=== PATIENT | female | born 1960 | race Caucasian/White ===

== ENCOUNTER 2019-07-03 14:47 | Outpatient (CLI) | payer OTHER ==
--- NOTE | 2019-07-03 15:55 | BD ---
BONE DENSITOMETRY USING DEXA: HISTORY: Postmenopausal screening for osteoporosis. Asymptomatic menopausal state. FINDINGS: Lumbar Spine: BMD (g/cm2) L1 0.887 T-Score: -0.9 Z-Score: 0.3 L2 0.939 T-Score: -0.8 Z-Score: 0.6 L3 1.032 T-Score: -0.5 Z-Score: 1.0 L4 1.031 T-Score: -0.3 Z-Score: 1.2 L1-L4 0.980 T-Score: -0.6 Z-Score: 0.8 Femoral Neck: 0.612 T-Score: -2.1 Z-Score: -0.9 Total Femur: 0.936 T-Score: -0.6 Z-Score: 0.9 The 10-year fracture risk for a major osteoporotic fracture is 10% and for a hip fracture is 1.4%. Impression: Osteopenia. POS: OFF
== END 2019-07-03 14:48 | disposition home or self-care (01) ==
LOC: BICMAMMO 14:47
PROVIDERS: ATTEND Family Medicine
DX: Z00.00 Encounter for general adult medical examination without abnormal findings (principal); M85.852 Other specified disorders of bone density and structure, left thigh; Z78.0 Asymptomatic menopausal state
CPT/HCPCS: 77080